=== PATIENT | male | born 2000 | race Caucasian/White ===

== ENCOUNTER 2019-06-08 22:46 | Emergency (ER) | payer SELFPAY ==
[~2019-06-08] VITALS: Ht 180.3 cm; Wt 65.7 kg
[2019-06-08] MEDS ORDERED: NS IV 1000 ML 1,000 ML IV SCH (23:41)
[2019-06-09] MEDS ORDERED: diphenhydrAMINE 50 MG/ML INJ (BENADRYL) IVP ONE
[2019-06-09 00:03] LABS: BASOPHILS % (AUTO) 0 % (0-10); EOSINOPHILS % (AUTO) 0 % (0-10); HEMATOCRIT 44 % (40-54); HEMOGLOBIN 15.2 G/DL (13.3-17.7); LYMPHOCYTES % (AUTO) 14 % (12-44); MEAN CORPUSCULAR HEMOGLOBIN 30 PG (25-34); MEAN CORPUSCULAR HGB CONC 35 G/DL (32-36); MEAN CORPUSCULAR VOLUME 87 FL (80-99); MEAN PLATELET VOLUME 9.7 FL (7.4-10.4); MONOCYTES # (AUTO) 0.9 X 10^3 (0.0-1.0); MONOCYTES % (AUTO) 13 % (0-12); NEUTROPHILS % (AUTO) 72 % (42-75); PLATELET COUNT 162 10^3/uL (130-400); RED CELL DISTRIBUTION WIDTH 13.3 % (10.0-14.5); WHITE BLOOD COUNT 6.9 10^3/uL (4.3-11.0)
--- OUTSIDE RECORDS SUMMARY | 2019-06-09 00:13 | XMS REPORT ---
Author Author Billy GUZMAN Organization [facility] Address [address] [place] [address] Care Team Providers Care Health Information Systems Technician Name Role Phone RUBEN GUZMANISTIN Unavailable PROBLEMS Type Condition ICD9-CM Code [id number] Code Onset Dates Condition S tatus SNOMED Code Problem Constipation, unspecified constipation type K59.00 Active [id number] ALLERGIES No Known Allergies ENCOUNTERS Encounter Location Date Diagnosis [facility] [address] [facility] [id number] [place] [address] Aug, RLQ abdominal pain R10.31 an d Constipation, unspecified constipation type K59.00 IMMUNIZATIONS No Known Immunizations SOCIAL HISTORY Never Assessed REASON FOR VISIT right abdominal pain. when asked pt to take one finger et point to the pain...he points to upper and lower quadrant. reports pain comes and goes...but when it d oes...can last up to an hour. reports pain is sharp. denies nausee t diarrhea. l ast BM was yesterday et normal for him. denies dysuria. [email or web address] PLAN OF CARE Activity Details Follow Up prn Reason: VITAL SIGNS Height 70 in 2017-08-26 Weight 154.0 lbs 2017-08-26 Temperature 97.4 degrees Fahrenheit 2017-08-26 Heart Rate 66 bpm 2017-08-26 Respiratory Rate 20 2017-08-26 BMI 22.09 kg/m2 2017-08-26 Blood pressure systolic 118 mmHg 2017-08-26 Blood pressure diastolic 70 mmHg 2017-08-26 MEDICATIONS No Known Medications RESULTS Name Result Date Reference Range Xray : KUB (IN HOUSE) 2017-08-26 PROCEDURES Procedure Date Ordered Result Body Site X-RAY EXAM ABDOMEN 1 VIEW August 26, 2017 INSTRUCTIONS MEDICATIONS ADMINISTERED No Known Medications MEDICAL (GENERAL) HISTORY Type Description Date Hospitalization History [facility] 2005
--- NOTE | 2019-06-09 00:18 | ED General ---
General Chief Complaint: Cough/Cold/Flu Symptoms Stated Complaint: COUGH / BODY ACHES Nursing Triage Note: c/o cough with productive sputum, nasal drainage, sore throat and body achces along with chilling, this started yesterday. patient also c/o small wheals noted to proximal elbow, posterior knee and waistband area. Source of Information: Patient Exam Limitations: No Limitations History of Present Illness Date Seen by Provider: Jun 09, 2019 Time Seen by Provider: 22:50 Initial Comments This 18-year-old young man presents to the emergency room with sore throat, chills, productive cough, myalgia, postnasal drainage, and headache since mid March. He is exposed to somebody with influenza and strep throat at that time. Tonight his symptoms became exacerbated and he presented to the emergency room. Temperature at home was no greater than 99. He is afebrile at present but mildly tachycardic. He admits to tobacco use but denies drug or alcohol use. He denies any risk factors for gomez virus including travel to a high risk area, exposure to a person under investigation or exposure to a known gomez virus patient. He has taken only Tylenol for his symptoms. Tonight he has also developed a pruritic rash around the antecubital fossa bilaterally and around the ankles. Allergies and Home Medications Allergies Uncoded Allergies: nkda (Allergy, Unknown, 06/08/19) Patient Home Medication List Home Medication List Reviewed: Yes Review of Systems Review of Systems Constitutional: see HPI EENTM: see HPI Respiratory: see HPI Cardiovascular: no symptoms reported Gastrointestinal: no symptoms reported Genitourinary: no symptoms reported Musculoskeletal: see HPI Skin: no symptoms reported Psychiatric/Neurological: See HPI Hematologic/Lymphatic: No Symptoms Reported Immunological/Allergic: no symptoms reported Past Prplmbm-Qqqjuh-Lhbqos Hx Past Med/Social Hx: Reviewed Nursing Past Med/Soc Hx Patient Social History Alcohol Use: Denies Use Recreational Drug Use: No Smoking Status: Current Everyday Smoker Type Used: Cigarettes Recent Foreign Travel: No Contact w/Someone Who Travel: No Recent Infectious Disease Expo: No Recent Hopitalizations: No Ebola Symptoms: Denies Symptoms Listed Seasonal Allergies Seasonal Allergies: No Past Medical History Surgeries: No Respiratory: Yes Asthma Cardiac: No Neurological: No Genitourinary: No Gastrointestinal: No Musculoskeletal: No Endocrine: No HEENT: No Cancer: No Psychosocial: No Integumentary: Yes (current sm.wheal.inner elbow area.posterior knees and waist.) Blood Disorders: No Physical Exam Vital Signs Vital Signs - First Documented 06/08/19 22:55 Temp 37.7 Pulse 111 Resp 18 B/P (MAP) 128/79 Pulse Ox 100 O2 Delivery Room Air Capillary Refill : Height, Weight, BMI Height: '" Weight: lbs. oz. kg; 20.00 BMI Method: General Appearance: No Apparent Distress, WD/WN HEENT: PERRL/EOMI, TMs Normal, Normal ENT Inspection, Pharynx Normal Neck: Normal Inspection Respiratory: Lungs Clear, Normal Breath Sounds, No Accessory Muscle Use, No Respiratory Distress; No Crackles, No Wheezing; Other (deep inspiration induces cough) Cardiovascular: No Edema, No Murmur, Tachycardia Gastrointestinal: Normal Bowel Sounds, Non Tender, Soft Extremity: Normal Inspection, Non Tender, No Calf Tenderness, No Pedal Edema Neurologic/Psychiatric: Alert, Oriented x3, No Motor/Sensory Deficits, Normal Mood/Affect, sql server dba developer II-XII Norm as Tested Skin: Warm/Dry, Rash (erythematous rash around the antecubital fossa's and ankles) Focused Exam Lactate Level 06/08/19 23:45: Lactic Acid Level 2.28*H Lactic Acid Level Progress/Results/Core Measures Suspected Sepsis SIRS Temperature: Pulse: Respiratory Rate: Laboratory Tests 06/08/19 23:45: White Blood Count 6.9 Blood Pressure / Mean: 06/08/19 23:45: Lactic Acid Level 2.28*H Laboratory Tests 06/08/19 23:45: Creatinine 0.94, INR Comment 1.0, Platelet Count 162, Total Bilirubin 0.4 Results/Orders Lab Results Laboratory Tests Test 06/08/19 22:55 06/08/19 23:45 06/09/19 00:02 06/09/19 01:07 Range/Units Group A Streptococcus Screen NEGATIVE NEGATIVE White Blood Count 6.9 4.3-11.0 10^3/uL Red Blood Count 5.04 4.35-5.85 10^6/uL Hemoglobin 15.2 13.3-17.7 G/DL Hematocrit 44 40-54 % Mean Corpuscular Volume 87 80-99 FL Mean Corpuscular Hemoglobin 30 25-34 PG Mean Corpuscular Hemoglobin Concent 35 32-36 G/DL Red Cell Distribution Width 13.3 10.0-14.5 % Platelet Count 162 130-400 10^3/uL Mean Platelet Volume 9.7 7.4-10.4 FL Neutrophils (%) (Auto) 72 42-75 % Lymphocytes (%) (Auto) 14 12-44 % Monocytes (%) (Auto) 13 H 0-12 % Eosinophils (%) (Auto) 0 0-10 % Basophils (%) (Auto) 0 0-10 % Neutrophils # (Auto) 5.0 1.8-7.8 X 10^3 Lymphocytes # (Auto) 1.0 1.0-4.0 X 10^3 Monocytes # (Auto) 0.9 0.0-1.0 X 10^3 Eosinophils # (Auto) 0.0 0.0-0.3 10^3/uL Basophils # (Auto) 0.0 0.0-0.1 10^3/uL Prothrombin Time 14.0 12.2-14.7 SEC INR Comment 1.0 0.8-1.4 Activated Partial Thromboplast Time 34 24-35 SEC Sodium Level 137 135-145 MMOL/L Potassium Level 3.6 3.6-5.0 MMOL/L Chloride Level 102 98-107 MMOL/L Carbon Dioxide Level 22 21-32 MMOL/L Anion Gap 13 5-14 MMOL/L Blood Urea Nitrogen 8 7-18 MG/DL Creatinine 0.94 0.60-1.30 MG/DL Estimat Glomerular Filtration Rate > 60 BUN/Creatinine Ratio 9 Glucose Level 71 70-105 MG/DL Lactic Acid Level 2.28 *H 0.50-2.00 MMOL/L Calcium Level 8.8 8.5-10.1 MG/DL Corrected Calcium 8.5-10.1 MG/DL Total Bilirubin 0.4 0.1-1.0 MG/DL Aspartate Amino Transf (AST/SGOT) 26 5-34 U/L Alanine Aminotransferase (ALT/SGPT) 22 0-55 U/L Alkaline Phosphatase 73 40-136 U/L C-Reactive Protein High Sensitivity 2.94 H 0.00-0.50 MG/DL Total Protein 7.9 6.4-8.2 GM/DL Albumin 4.6 H 3.2-4.5 GM/DL Urine Color YELLOW Urine Clarity CLEAR Urine pH 7.0 5-9 Urine Specific [place] 1.015 L 1.016-1.022 Urine Protein NEGATIVE NEGATIVE Urine Glucose (UA) NEGATIVE NEGATIVE Urine Ketones NEGATIVE NEGATIVE Urine Nitrite NEGATIVE NEGATIVE Urine Bilirubin NEGATIVE NEGATIVE Urine Urobilinogen 4.0 < = 1.0 MG/DL Urine Leukocyte Esterase NEGATIVE NEGATIVE Urine RBC (Auto) NEGATIVE NEGATIVE Urine RBC NONE /HPF Urine WBC NONE /HPF Urine Squamous Epithelial Cells RARE /HPF Urine Crystals PRESENT H /LPF Urine Uric Acid Crystals RARE H /LPF Urine Bacteria NEGATIVE /HPF Urine Casts NONE /LPF Urine Mucus NEGATIVE /LPF Urine Culture Indicated CULTURE PENDING Monoscreen NEGATIVE NEGATIVE Micro Results Microbiology 06/08/19 Influenza Types A,B Antigen (KALYANI) - Final, Complete My Orders Orders - DAVIN MARTIN MD Influenza A And B Antigens (06/08/19 22:50) Rapid Strep A Screen (06/08/19 23:06) Cbc With Automated Diff (06/08/19 23:41) Comprehensive Metabolic Panel (06/08/19 23:41) Blood Culture (06/08/19 23:41) Sputum Culture (06/08/19 23:41) Urinalysis (06/08/19 23:41) Urine Culture (06/08/19 23:41) Protime With Inr (06/08/19 23:41) Partial Thromboplastin Time (06/08/19 23:41) Ed Iv/Invasive Line Start (06/08/19 23:41) Vital Signs Adult Sepsis Patie Q15M (06/08/19 23:41) Remove Rings In Anticipation O (06/08/19 23:41) Lactic Acid Analyzer (06/08/19 23:41) Ns Iv 1000 Ml (Sodium Chloride 0.9%) (06/08/19 23:41) Diphenhydramine Injection (Benadryl Inje (06/09/19 00:00) Chest Pa/Lat (2 View) (06/09/19 00:01) Hs C Reactive Protein (06/09/19 00:27) Monotest (06/09/19 01:00) Ketorolac Injection (Toradol Injection) (06/09/19 01:30) Medications Given in ED Current Medications Medications Dose Ordered Sig/Yamile Route Start Time Stop Time Status Last Admin Dose Admin Diphenhydramine HCl 25 mg ONCE ONCE IVP 06/09/19 00:00 06/09/19 00:01 DC 06/08/19 23:54 25 MG Ketorolac Tromethamine 15 mg ONCE ONCE IVP 06/09/19 01:30 06/09/19 01:25 DC 06/09/19 01:22 15 MG Vital Signs/I&O 06/08/19 06/08/19 06/09/19 06/09/19 22:55 22:55 01:17 01:22 Temp 37.7 39.1 39.1 Pulse 111 111 Resp 18 18 B/P (MAP) 128/79 Pulse Ox 100 99 O2 Delivery Room Air Room Air Capillary Refill : Progress Note #1: Time: :11 Progress Note Patient was seen and evaluated. Septic workup was pursued. No evidence of bacterial infection was identified. Lactic acid was slightly elevated, likely owing to hydration status. Patient did receive a liter of IV fluid. Symptoms improved. He also received Benadryl for his rash which completely resolved. Patient does not appear to have sepsis as there is no source of infection identified, WBC is normal, and CRP is low. However, patient was given instructions to return if symptoms worsen. Progress Note #2: Progress Note Patient did develop fever prior to discharge. He was given Toradol for control of his symptoms. Since there is no evidence of bacterial infection, he was still allowed to discharge. Return precautions were reviewed. Diagnostic Imaging Diagonstic Imaging: Xray Plain Films/CT/US/NM/MRI: chest Comments Chest x-ray viewed by me. Report not yet available. No acute abnormality appreciated. Departure Impression Primary Impression: Flu-like symptoms Additional Impression: Pruritic rash Disposition: HOME, SELF-CARE Condition: Improved Departure-Patient Inst. Decision time for Depature: :09 Referrals: NO,LOCAL PHYSICIAN (PCP/Family) Primary Care Physician Patient Instructions: VIRAL SYNDROME Add. Discharge Instructions: For pain or fever or you may take ibuprofen up to 600 mg every 6 hours and/or Tylenol (acetaminophen) up to 1000 mg every 6 hours as needed. For her rash you may take Benadryl (diphenhydramine) up to 50 mg every 6 hours as needed. Drink plenty of clear liquids. Work toward quitting smoking as soon as possible. Follow-up with a primary care provider as soon as possible for repeat exam. If symptoms worsen, return to the emergency room. Avoid contact with other people until symptoms improve. All discharge instructions reviewed with patient and/or family. Voiced understanding. DAVIN MARTIN MD Jun 09, 2019 00:18
[2019-06-09 00:39] LABS: CLARITY,URINE CLEAR; COLOR,URINE YELLOW
[2019-06-09 00:40] LABS: BACTERIA,URINE NEGATIVE /HPF; BILIRUBIN,URINE NEGATIVE (NEGATIVE); GLUCOSE, URINE (UA) NEGATIVE (NEGATIVE); KETONES,URINE NEGATIVE (NEGATIVE); LEUKOCYTE ESTERASE ,URINE NEGATIVE (NEGATIVE); NITRITE,URINE NEGATIVE (NEGATIVE); PROTEIN,URINE NEGATIVE (NEGATIVE); SQUAMOUS EPITHELIAL CELL,UR RARE /HPF; URIC ACID CRYSTALS,URINE RARE /LPF
[2019-06-09 00:46] LABS: ALANINE AMINOTRANSFERASE 22 U/L (0-55); ALBUMIN 4.6 GM/DL (3.2-4.5); ALKALINE PHOSPHATASE 73 U/L (40-136); BILIRUBIN,TOTAL 0.4 MG/DL (0.1-1.0); BUN/CREATININE RATIO 9; CALCIUM 8.8 MG/DL (8.5-10.1); CARBON DIOXIDE 22 MMOL/L (21-32); CHLORIDE 102 MMOL/L (98-107); CREATININE SERUM 0.94 MG/DL (0.60-1.30); GFR ESTIMATED > 60; GLUCOSE 71 MG/DL (70-105); POTASSIUM 3.6 MMOL/L (3.6-5.0); SODIUM 137 MMOL/L (135-145); TOTAL PROTEIN 7.9 GM/DL (6.4-8.2)
[2019-06-09] MEDS ORDERED: KETOROLAC 30 MG/ML VIAL IVP ONE (01:30)
--- NOTE | 2019-06-09 05:59 | Diagnostic Imaging Report ---
INDICATION: Cough and congestion. FINDINGS: PA and lateral views. The lungs are well-aerated and clear. Heart is not enlarged. No pulmonary edema or hilar adenopathy. No pneumothorax or pleural effusion. No bony abnormalities. IMPRESSION: Normal PA and lateral chest Dictated by: Dictated on workstation # [id number]
== END 2019-06-09 01:23 | disposition home or self-care (01) ==
LOC: ER 22:48
DX: R09.89 Other specified symptoms and signs involving the circulatory and respiratory systems (principal); L29.9 Pruritus, unspecified; F17.210 Nicotine dependence, cigarettes, uncomplicated
CPT/HCPCS: 36415; 71046; 80053; 81000; 83605; 85025; 85610; 85730; 86141; 86308; 87040; 87088; 87430; 87804

== ENCOUNTER 2020-11-04 17:29 | Emergency (ER) | payer BC ==
[~2020-11-04] VITALS: Ht 180.3 cm; Wt 68.0 kg
[2020-11-04 17:40] VITALS: BP 141/71
[2020-11-04] MEDS ORDERED: TETANUS,DIPTH,PERTUSS P/F (BOOSTRIX) 0.5 ML VIAL IM ONE (17:45)
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
[2020-11-04] MEDS ORDERED: MUPI22OI2 TP (18:27)
[2020-11-04] MEDS ORDERED: NAPR500T8 PO (18:27)
== END 2020-11-04 18:30 | disposition home or self-care (01) ==
LOC: EDUNIT# 17:29 → ER 17:31
DX: S63.501A Unspecified sprain of right wrist, initial encounter (principal); S70.01XA Contusion of right hip, initial encounter; S60.512A Abrasion of left hand, initial encounter; S60.511A Abrasion of right hand, initial encounter; J45.909 Unspecified asthma, uncomplicated; Z23 Encounter for immunization; V18.0XXA Pedal cycle driver injured in noncollision transport accident in nontraffic accident, initial encounter
CPT/HCPCS: 73110; 73502; 90715